=== PATIENT | female | born 1990 | race Caucasian/White ===

== ENCOUNTER 2016-10-16 01:14 | Emergency (ER) | payer MEDICAID, OTHER ==
--- NOTE | 2016-10-16 01:29 | ED Physician Chart ---
Chief Complaint/HPI - Patient Information Date Seen:: 10/16/16 Time Seen:: 01:25 Chief Complaint:: Alcohol intoxication. History of Present Illness:: Brought in by ambulance because pt was intoxicated with alcohol. Pt is responsive to voice and tactile stimuli, but not fully cooperative. H & P are thus limited. Pt denies any bodily pain. Pt denies any illicit drug use. Vitals:: see Nurse Note. Historian:: Patient Family MD/PCP:: Unknown Review:: Nurse's Note Reviewed, EMS run form Reviewed Review of Systems - Review of Systems General/Constitutional: Other (Pt does not cooperate for ROS.) Past Medical History - Past Medical History Past Medical History: No significant medical hx Family History: Other (Pt does not cooperate to provide info on FHx.) Social History: Other (Pt does not cooperate to provide info on SHx.) Surgical History: other (Pt does not cooperate to provide info on Surgical Hx.) Medication: Reviewed Family Medical History - Family Member Mother Ethnicity: Living Status: Still Living Physical Exam - Physical Examination General/Constitutional: Awake, Well-developed, well-nourished, Alert, No distress Other Gen/Cons comments:: Breathes comfortably and speaks clearly, but not cooperative. Head: Atraumatic Eyes: Lids, conjuctiva normal, PERRL, EOMI Skin: Nl inspection, No rash, No skin lesions, No ecchymosis, Well hydrated, No lymphadenopathy ENMT: External ears, nose nl, Nasal exam nl, Lips, teeth, gums nl, Oropharynx nl , Tonsils nl Neck: Nontender, Full ROM w/o pain, No nuchal rigidity, No stridor Respiratory: Nl effort/Exclusion, Clear to Auscultation, No Wheeze/Rhonchi/Rales Cardio Vascular: RRR, No murmur, gallop, rubs GI: No tenderness/rebounding/guarding, No organomegaly, No hernia, Normal BS's, Nondistended, No mass/bruits, No McBurney tenderness Other GI comments:: Abdomen is soft. Extremities: No tenderness or effusion, Full ROM, normal strength in all extremities, No edema, Normal digits & nails Neuro/Psych: Alert/oriented (know her name, that she is in hospital and it is 2017.), No focal deficits Labs/Radiology/EKG Results - Lab Results Results: Laboratory Tests 10/16/16 10/16/16 10/16/16 01:40 01:40 01:40 WBC 6.0 RBC 4.52 Hgb 12.5 Hct 37.1 MCV 81.9 MCH 27.7 MCHC Differential 33.8 RDW 13.0 Plt Count 284 MPV 7.6 Neutrophils % 64.2 Lymphocytes % 28.9 Monocytes % 5.8 Eosinophils % 0.5 Basophils % 0.6 PT 10.4 INR 1.00 PTT (Actin FS) 24.6 L Sodium 138 Potassium 3.2 L Chloride 106 Carbon Dioxide 23.7 Anion Gap 11.5 BUN 11 Creatinine 0.6 Est GFR ( Amer) > 60.0 Est GFR (Non-Af Amer) > 60.0 BUN/Creatinine Ratio 18.3 Glucose 119 H Calcium 8.7 Total Bilirubin 1.0 AST 19 ALT 14 Alkaline Phosphatase 78 Total Protein 7.3 Albumin 4.1 Globulin 3.2 Albumin/Globulin Ratio 1.3 Urine Test Ethyl Alcohol 134 H 10/16/16 03:45 WBC RBC Hgb Hct MCV MCH MCHC Differential RDW Plt Count MPV Neutrophils % Lymphocytes % Monocytes % Eosinophils % Basophils % PT INR PTT (Actin FS) Sodium Potassium Chloride Carbon Dioxide Anion Gap BUN Creatinine Est GFR ( Amer) Est GFR (Non-Af Amer) BUN/Creatinine Ratio Glucose Calcium Total Bilirubin AST ALT Alkaline Phosphatase Total Protein Albumin Globulin Albumin/Globulin Ratio Urine Test NEGATIVE Ethyl Alcohol ED Septic Shock - . Is Septic Shock (SBP<90, OR Lactate>4 mmol\L) present?: No Reassessment (Disposition) - Reassessment Reassessment:: 0544 Pt feels much better. A and O x 3. Pt breathes comfortably, speaks clearly , and ambulates without assistance without difficulty. Lab findings have been reviewed with pt. Pt's boyfriend Yonis Estevez is at bedside. Pt requests to go home now and does not want further observation/management in hospital. Aftercare instructions have been given. Her boyfriend Yonis Estevez will drive her home and care for her. Reassessment Condition:: Improved - Diagnosis Diagnosis:: Alcohol intoxication, resolving and stable. Mild hypokalemia, stable. - Aftercare/Follow up Instructions Aftercare/Follow-Up Instructions:: Refer to Discharge Instructions Notes:: Bedrest. Pt has been informed about health risks associated with alcohol use and has been advised to quit. Pt states she drinks alcohol rarely. Pt acknowledges understanding. Increase oral intake of potassium rich foodstuffs. F/U with Dr. Aguilar or PCP of pt's choice in one day for recheck with repeat lab study: BMP. Return to ER immediately if condition worsens or if any further questions/problems. Medication Prescribed:: None - Patient Disposition Discharge/Transfer:: Home Time:: 05:50 Condition at Disposition:: Stable, Improved
[2016-10-16] MEDS ORDERED: Multivitamin Inj 10 ML, Thiamine HCL 100 MG, Magnesium Sulfate 2 GM, Folic Acid 1 MG in... IV ONE (01:31)
[2016-10-16] MEDS ORDERED: Thiamine 100 mg/mL 2mL Vial ONE (01:39)
[2016-10-16] MEDS ORDERED: Magnesium Sulfate 1 gm/2 mL 2mL Vial IV ONE (01:39)
[2016-10-16] MEDS ORDERED: Multivitamin Inj 10 mL Vial IV ONE (01:43)
[2016-10-16 01:47] LABS: % BASOPHILS 0.6 % (0.0-2.0); % EOSINOPHILS 0.5 % (0.0-5.0); % LYMPHOCYTES 28.9 % (20.0-50.0); % MONOCYTES 5.8 % (2.0-10.0); % NEUTROPHILS 64.2 % (40.0-80.0); HEMATOCRIT 37.1 % (35.0-45.0); HEMOGLOBIN 12.5 gm/dL (11.7-15.5); MEAN CELL VOLUME 81.9 fl (81-100); MEAN CORPUSCULAR HEMOGLOBIN 27.7 pg (27.0-31.0); MEAN CORPUSCULAR HGB CONC 33.8 pg (28.0-36.0); MEAN PLATELET VOLUME 7.6 fl; PLATELET COUNT 284 Th/cmm (150-400); RED BLOOD COUNT 4.52 Mil/cmm (3.80-5.10)
[2016-10-16 02:01] LABS: PROTHROMBIN TIME (TEST) 10.4 SECONDS (9.5-11.5)
[2016-10-16 02:05] LABS: ALB/GLOB RATIO 1.3 (1.0-1.8); ALKALINE PHOSPHATASE 78 U/L (34-104); ANION GAP 11.5 (7.0-16.0); BUN - UREA NITROGEN 11 mg/dL (7-25); BUN/CREATININE RATIO 18.3; CALCIUM SERUM 8.7 mg/dL (8.6-10.3); CARBON DIOXIDE 23.7 mEq/L (21.0-31.0); CHLORIDE 106 mEq/L (98-107); CREATININE - SERUM 0.6 mg/dL (0.6-1.2); GLUCOSE 119 mg/dL (70-105); POTASSIUM SERUM 3.2 mEq/L (3.5-5.1); SGOT 19 U/L (13-39); SGPT/ALT 14 U/L (7-52); SODIUM SERUM 138 mEq/L (136-145)
[2016-10-16] MEDS ORDERED: Potassium Chloride 20 mEq ER Tab PO ONE ×2 (03:38→05:29)
== END 2016-10-16 06:10 | disposition home or self-care (01) ==
LOC: ER 01:14
DX: F10.129 Alcohol abuse with intoxication, unspecified (principal); E87.6 Hypokalemia
CPT/HCPCS: 99285; 96365; 96366; 36415; 85025; 85610; 80320; 81025; 80053; J3411; J3475; J7030; X6226; X6598